=== PATIENT | male | born 1950 | race African-American/Black ===

== ENCOUNTER 2016-10-01 13:26 | Emergency (ER) | payer MEDICARE, OTHER ==
[~2016-10-01] VITALS: Ht 185.4 cm; Wt 81.6 kg
[~2016-10-01 13:26] MED LIST: ASPIR 8181 MG ORAL; TYLENOL650 MG/20. ORAL
[2016-10-01 13:30] VITALS: BP 160/58
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
== END 2016-10-01 13:50 | disposition left against medical advice (07) ==
LOC: EDBD 13:26 → EMR 13:38
DX: R07.89 Other chest pain (principal); I10 Essential (primary) hypertension; F41.9 Anxiety disorder, unspecified
CPT/HCPCS: 99283

== ENCOUNTER 2017-01-10 11:51 | Emergency (ER) | payer MEDICARE, MEDICAID ==
[~2017-01-10] VITALS: Ht 188 cm; Wt 79.4 kg
[2017-01-10] MEDS ORDERED: DiphenhydrAMINE 50mg/ml Inj IM ONE (12:00)
[2017-01-10] MEDS ORDERED: LORazepam Inj 2mg/ml 1ml IM ONE (12:00)
[2017-01-10] MEDS ORDERED: Haloperidol 5mg/ml Inj IM ONE (12:00)
--- NOTE | 2017-01-10 12:37 | Emergency Room Report ---
History of Present Illness General Chief Complaint: Behavioral Complaint Source: EMS (Farhat eSwell) Present Illness HPI Patient is a 66-year-old male sent in by police after increased agitation. Patient had been brought in by police and EMS. Patient was noted to have increased agitation and had been markedly combative. It is difficult to assess the patient's history due to patient's poor cooperation and agitation. (Farhat Sewell) Allergies: Coded Allergies: No Known Allergies (Unverified , 12/01/15) Patient History Reviewed Nursing Documentation: PMH: Agreed, PSxH: Agreed (Farhat Sewell) Nursing Documentation-PMH Past Medical History: No History, Except For Hx Cardiac Problems: Yes Hx Hypertension: No - HIV (Farhat Sewell) Review of Systems All Other Systems: limited - by ams (Farhat Sewell) Physical Exam Vital Signs Date Time Temp Pulse Resp B/P Pulse Ox O2 Delivery O2 Flow Rate FiO2 01/10/17 11:42 115 20 98 Room Air Sp02 EP Interpretation: reviewed, normal General Appearance: alert/responsive, no apparent distress, GCS 15, non-toxic Head: atraumatic Eyes: PERRL, lids + conjunctiva normal ENT: hearing intact, no angioedema Neck: supple/symm/no masses, no meningismus Respiratory: effort normal, no wheezing, chest symmetrical Cardiovascular: regular rate, rhythm, no edema Cardiovascular #2: 2+ carotid (R), 2+ carotid (L), 2+ dorsalis pedis (R), 2+ dorsalis pedis (L) Gastrointestinal: non-tender, no mass, non-distended, no rebound/guarding, normal bowel sounds Musculoskeletal: gait & station normal, strength & tone normal, normal ROM, non -tender Neurologic: CN II-XII intact, sensory intact Psychiatric: other - agitated combative Skin: no rash, well hydrated Lymphatic: normal inspection (Farhat Sewell) Medical Decision Making Diagnostic Impression: Primary Impression: Behavioral disorder Additional Impression: Cocaine abuse ER Course Patient presented for agitation. Differential diagnoses include substance abuse, psychosis, bipolar disorder, depression, malingering. Patient was noted to have marked agitation and was given multiple medications for sedation. Laboratory testing was ordered. The patient was noted to have some improvement agitation after medication. Patient had been placed on a 5150 by [employer]. Labs Test 01/10/17 14:35 01/10/17 19:14 White Blood Count 7.2 K/UL (4.8-10.8) Red Blood Count 3.94 M/UL (4.70-6.10) Hemoglobin 12.2 G/DL (14.2-18.0) Hematocrit 37.8 % (42.0-52.0) Mean Corpuscular Volume 96 FL (80-99) Mean Corpuscular Hemoglobin 31.0 PG (27.0-31.0) Mean Corpuscular Hemoglobin Concent 32.4 G/DL (32.0-36.0) Red Cell Distribution Width 17.0 % (11.6-14.8) Platelet Count 174 K/UL (150-450) Mean Platelet Volume 5.7 FL (6.5-10.1) Neutrophils (%) (Auto) 61.5 % (45.0-75.0) Lymphocytes (%) (Auto) 29.2 % (20.0-45.0) Monocytes (%) (Auto) 7.2 % (1.0-10.0) Eosinophils (%) (Auto) 0.6 % (0.0-3.0) Basophils (%) (Auto) 1.4 % (0.0-2.0) Sodium Level 141 mEQ/L (135-145) Potassium Level 3.8 mEQ/L (3.4-4.9) Chloride Level 101 mEQ/L (98-107) Carbon Dioxide Level 23 mEQ/L (20-30) Anion Gap 17 (5-15) Blood Urea Nitrogen 35 mg/dL (7-23) Creatinine 1.2 mg/dL (0.7-1.2) Estimat Glomerular Filtration Rate > 60 mL/min (>60) Glucose Level 105 mg/dL (74-106) Calcium Level 8.7 mg/dL (8.6-10.2) Total Bilirubin 0.6 mg/dL (0.0-1.2) Aspartate Amino Transf (AST/SGOT) 73 U/L (5-40) Alanine Aminotransferase (ALT/SGPT) 26 U/L (3-41) Alkaline Phosphatase 88 U/L (40-129) Total Protein 6.7 g/dL (6.6-8.7) Albumin 3.8 g/dL (3.5-5.2) Globulin 2.9 g/dL Albumin/Globulin Ratio 1.3 (1.0-2.7) Salicylates Level < 1 mg/dL (10-30) Acetaminophen Level < 10 ug/mL (10-30) Serum Alcohol < 10 mg/dL Urine Opiates Screen Negative (NEGATIVE) Urine Barbiturates Screen Negative (NEGATIVE) Phencyclidine (PCP) Screen Negative (NEGATIVE) Urine Amphetamines Screen Negative (NEGATIVE) Urine Benzodiazepines Screen Negative (NEGATIVE) Urine Cocaine Screen Positive (NEGATIVE) Urine Marijuana (THC) Screen Negative (NEGATIVE) (Farhat Sewell) ER Course Hospital Course 66-year-old male presents to ED for behavioral disturbance. running through traffic Clinical course Initially seen and evaluated by Dr. Sewell; please see his note for full history and physical patient was sedated initially for agitation Labs-electrolytes normal, aspirin/Tylenol levels normal, EtOH level normal, U. tox +cocaine Patient placed on 5150 hold by police Patient is medically cleared and pending psychiatric evaluation. i. I feel this is a highly complex case requiring extensive working including EKG/Rhythm strip, Xray/CT/US, Blood/urine lab work, repeat exams while in ED, and administration of strong opiates/narcotics for pain control, admission to hospital or close patient follow up. Labs Test 01/10/17 14:35 01/10/17 19:14 White Blood Count 7.2 K/UL (4.8-10.8) Red Blood Count 3.94 M/UL (4.70-6.10) Hemoglobin 12.2 G/DL (14.2-18.0) Hematocrit 37.8 % (42.0-52.0) Mean Corpuscular Volume 96 FL (80-99) Mean Corpuscular Hemoglobin 31.0 PG (27.0-31.0) Mean Corpuscular Hemoglobin Concent 32.4 G/DL (32.0-36.0) Red Cell Distribution Width 17.0 % (11.6-14.8) Platelet Count 174 K/UL (150-450) Mean Platelet Volume 5.7 FL (6.5-10.1) Neutrophils (%) (Auto) 61.5 % (45.0-75.0) Lymphocytes (%) (Auto) 29.2 % (20.0-45.0) Monocytes (%) (Auto) 7.2 % (1.0-10.0) Eosinophils (%) (Auto) 0.6 % (0.0-3.0) Basophils (%) (Auto) 1.4 % (0.0-2.0) Sodium Level 141 mEQ/L (135-145) Potassium Level 3.8 mEQ/L (3.4-4.9) Chloride Level 101 mEQ/L (98-107) Carbon Dioxide Level 23 mEQ/L (20-30) Anion Gap 17 (5-15) Blood Urea Nitrogen 35 mg/dL (7-23) Creatinine 1.2 mg/dL (0.7-1.2) Estimat Glomerular Filtration Rate > 60 mL/min (>60) Glucose Level 105 mg/dL (74-106) Calcium Level 8.7 mg/dL (8.6-10.2) Total Bilirubin 0.6 mg/dL (0.0-1.2) Aspartate Amino Transf (AST/SGOT) 73 U/L (5-40) Alanine Aminotransferase (ALT/SGPT) 26 U/L (3-41) Alkaline Phosphatase 88 U/L (40-129) Total Protein 6.7 g/dL (6.6-8.7) Albumin 3.8 g/dL (3.5-5.2) Globulin 2.9 g/dL Albumin/Globulin Ratio 1.3 (1.0-2.7) Salicylates Level < 1 mg/dL (10-30) Acetaminophen Level < 10 ug/mL (10-30) Serum Alcohol < 10 mg/dL Urine Opiates Screen Negative (NEGATIVE) Urine Barbiturates Screen Negative (NEGATIVE) Phencyclidine (PCP) Screen Negative (NEGATIVE) Urine Amphetamines Screen Negative (NEGATIVE) Urine Benzodiazepines Screen Negative (NEGATIVE) Urine Cocaine Screen Positive (NEGATIVE) Urine Marijuana (THC) Screen Negative (NEGATIVE) (MIGDALIA MCDONNELL M.D.) ER Course Patient signed out to me. Patient was placed on a 5150 by police. Initially he was combative and running in traffic. Now is calm and cooperative. He wanted to go to a psychiatric facility. Lab work are unremarkable. (MITCH KAISER M.D.) Last Vital Signs Date Time Temp Pulse Resp B/P Pulse Ox O2 Delivery O2 Flow Rate FiO2 01/10/17 11:42 115 20 98 Room Air Status: unchanged (Farhat Sewell) Status: improved (MIGDALIA MCDONNELL M.D.) Disposition: XFER TO PSYCH HOSP/UNIT Condition: Serious Farhat Sewell Jan 10, 2017 12:37 MIGDALIA MCDONNELL M.D. Jan 10, 2017 23:13 MITCH KAISER M.D. Jan 11, 2017 03:21
[2017-01-10 13:05] VITALS: BP 154/86
[2017-01-10 14:55] LABS: BASOPHILS % (AUTO) 1.4 % (0.0-2.0); EOSINOPHILS % (AUTO) 0.6 % (0.0-3.0); LYMPHOCYTES % (AUTO) 29.2 % (20.0-45.0); MEAN CORPUSCULAR HGB CONC 32.4 G/DL (32.0-36.0); MEAN CORPUSCULAR VOLUME 96 FL (80-99); MEAN PLATELET VOLUME 5.7 FL (6.5-10.1); MONOCYTES % (AUTO) 7.2 % (1.0-10.0); NEUTROPHILS % (AUTO) 61.5 % (45.0-75.0); PLATELET COUNT 174 K/UL (150-450); RED BLOOD COUNT 3.94 M/UL (4.70-6.10); WHITE BLOOD COUNT 7.2 K/UL (4.8-10.8)
[2017-01-10 15:15] LABS: ACETAMINOPHEN < 10 ug/mL (10-30); ALANINE AMINOTRANSFERASE 26 U/L (3-41); ALBUMIN/GLOBULIN RATIO 1.3 (1.0-2.7); ALCOHOL < 10 mg/dL; ANION GAP 17 (5-15); ASPARTATE AMINO TRANSFERASE 73 U/L (5-40); CALCIUM 8.7 mg/dL (8.6-10.2); CARBON DIOXIDE 23 mEQ/L (20-30); CHLORIDE 101 mEQ/L (98-107); CREATININE 1.2 mg/dL (0.7-1.2); GLOMERULAR FILTRATION RATE > 60 mL/min (>60); HEMOLYSIS 6; POTASSIUM 3.8 mEQ/L (3.4-4.9); SODIUM 141 mEQ/L (135-145); TOTAL PROTEIN 6.7 g/dL (6.6-8.7)
[2017-01-10 19:05] VITALS: BP 109/71
[2017-01-10 23:00] VITALS: BP 149/92
[2017-01-11 03:31] VITALS: BP 136/82
[2017-01-11 07:46] VITALS: BP 140/89
[2017-01-11 09:55] VITALS: BP 139/80
[2017-01-11 10:34] VITALS: BP 139/80
== END 2017-01-11 10:35 ==
LOC: EDBD 11:51 → EMR 13:14
DX: F91.9 Conduct disorder, unspecified (principal); F14.10 Cocaine abuse, uncomplicated
CPT/HCPCS: 36415; 80053; 80300; 85025; 96372; 99285; G0480; J1200; J1630; 80329

== ENCOUNTER 2017-07-20 05:40 | Emergency (ER) | payer MEDICARE, MEDICAID ==
[~2017-07-20] VITALS: Ht 188 cm; Wt 74.8 kg
[2017-07-20 06:06] VITALS: BP 123/68
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
[2017-07-20] MEDS ORDERED: ACETAMINOPHEN-1 EAC1 ORAL (07:54)
[2017-07-20 08:15] VITALS: BP 125/81
--- NOTE | 2017-07-20 08:43 | Diagnostic Imaging Report ---
Indications: PAIN, trauma Technique: Spiral images obtained through the facial bones. No IV contrast utilized. Multiplanar reconstructions were generated.Total dose length product 654 mGycm. CTDIvol(s) 20mGy. Dose reduction achieved using automated exposure control Comparison: None Findings: There is some image degradation due to motion artifact. Questionable minimally displaced right-sided nasal fracture deformity demonstrated. There is some layering of fluid within the right axillary sinus, but no definite maxillary sinus wall fracture demonstrated. No definite orbital fracture. Is evidence of multiple prior dental extractions. The existing dentition appears intact. There is minimal ethmoid sinus disease area the included intracranial structures are unremarkable. The optic globes are intact. Impression: Somewhat limited exam, due to motion artifact Age-indeterminate right-sided nasal fracture deformity No other evidence of acute fracture Sinus disease This agrees with the preliminary interpretation provided overnight by [facility] teleradiology service. The CT scanner at [facility] is accredited by the [employer] and the scans are performed using protocols designed to limit radiation exposure to as low as reasonably achievable to attain images of sufficient resolution adequate for diagnostic evaluation.
--- NOTE | 2017-07-20 08:46 | Diagnostic Imaging Report ---
Indications: Trauma, pain Technique: Spiral acquisitions obtained through the brain. Angled axial and coronal 5 x 5 mm slices were reconstructed. Total dose length product 1550 mGycm. CTDI vol(s) 70 mGy. Dose reduction achieved using automated exposure control Comparison: None Findings: There is some image degradation due to motion artifact. There is mild age-related enlargement of ventricles and extra-axial CSF spaces, minimal periventricular the white matter chronic ischemic change. No definite acute hemorrhage or edema, mass effect, or midline shift. Questionable age indeterminate right-sided nasal fracture deformity. Minimal right maxillary sinus air-fluid level and ethmoid sinus mucosal disease. Intact orbits. Impression: Somewhat limited exam due to motion artifact No gross acute intracranial bleed or mass effect. Age indeterminate nasal fracture deformity Sinus disease This agrees with the preliminary interpretation provided overnight by [facility] telerad[facility] service. The CT scanner at [facility] is accredited by the [employer] and the scans are performed using protocols designed to limit radiation exposure to as low as reasonably achievable to attain images of sufficient resolution adequate for diagnostic evaluation.
== END 2017-07-20 08:15 | disposition home or self-care (01) ==
LOC: EMR 06:09
DX: S01.412A Laceration without foreign body of left cheek and temporomandibular area, initial encounter (principal); Y04.2XXA Assault by strike against or bumped into by another person, initial encounter; Y92.89 Other specified places as the place of occurrence of the external cause; R51 Headache
CPT/HCPCS: 70450; 70486; 99284

== ENCOUNTER 2017-11-09 18:56 | Inpatient (IN) | payer MEDICARE, MEDICAID ==
[~2017-11-09] VITALS: Ht 182.9 cm; Wt 74.8 kg
[~2017-11-09 18:56] MED LIST changes: +ACETAMINOPHEN-1 EAC1 ORAL
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
[2017-11-09 19:55] LABS: BASOPHILS % (AUTO) 1.7 % (0.0-2.0); HEMATOCRIT 34.6 % (42.0-52.0); HEMOGLOBIN 11.3 G/DL (14.2-18.0); LYMPHOCYTES % (AUTO) 39.1 % (20.0-45.0); MEAN CORPUSCULAR VOLUME 94 FL (80-99); MONOCYTES % (AUTO) 9.7 % (1.0-10.0); NEUTROPHILS % (AUTO) 46.5 % (45.0-75.0); PLATELET COUNT 248 K/UL (150-450); RED BLOOD COUNT 3.66 M/UL (4.70-6.10); WHITE BLOOD COUNT 4.5 K/UL (4.8-10.8)
[2017-11-09 20:00] VITALS: BP 121/89
[2017-11-09 20:07] LABS: ANION GAP 3 mmol/L (5-15); BLOOD UREA NITROGEN 18 mg/dL (7-18); CALCIUM 8.7 MG/DL (8.5-10.1); CARBON DIOXIDE 30 MMOL/L (21-32); CHLORIDE 105 MMOL/L (98-107); CREATININE 1.1 MG/DL (0.55-1.30); POTASSIUM 3.7 MMOL/L (3.5-5.1); SODIUM 138 MMOL/L (136-145)
[2017-11-09 20:19] LABS: ALANINE AMINOTRANSFERASE 17 U/L (12-78); ALBUMIN 2.8 G/DL (3.4-5.0); ALBUMIN/GLOBULIN RATIO 0.8 (1.0-2.7); ALKALINE PHOSPHATASE 95 U/L (46-116); ASPARTATE AMINO TRANSFERASE 28 U/L (15-37); BILIRUBIN,TOTAL 0.2 MG/DL (0.2-1.0)
[2017-11-09 21:48] VITALS: BP 131/71
[2017-11-10 04:00] VITALS: BP 126/74
[2017-11-10 08:00] VITALS: BP 123/76
[2017-11-10] MEDS ORDERED: Epzicom tab ORAL SCH (09:00)
[2017-11-10] MEDS ORDERED: Zidovudine 100mg cap ORAL SCH (09:00)
--- NOTE | 2017-11-10 09:34 | Cardiac Electrophysiology PN ---
Subjective Subjective Cardiology consult dictated [id number] Objective Last 24 Hour Vital Signs Date Time Temp Pulse Resp B/P (MAP) Pulse Ox O2 Delivery O2 Flow Rate FiO2 11/10/17 04:00 97.8 80 20 126/74 98 Room Air 11/10/17 00:00 82 11/09/17 23:17 98.8 78 18 131/71 99 Room Air 98.8 11/09/17 21:48 98.8 78 18 131/71 99 Room Air 98.8 11/09/17 20:00 98.8 89 18 121/89 99 Room Air 98.8 11/09/17 19:13 100 18 Room Air 11/09/17 18:52 98.7 100 18 143/87 99 Room Air 98.8 Intake and Output 11/09/17 11/10/17 19:00 07:00 Intake Total 0 ml Balance 0 ml Intake Oral 0 ml Laboratory Tests Test 11/09/17 19:26 White Blood Count 4.5 K/UL (4.8-10.8) L Red Blood Count 3.66 M/UL (4.70-6.10) L Hemoglobin 11.3 G/DL (14.2-18.0) L Hematocrit 34.6 % (42.0-52.0) L Mean Corpuscular Volume 94 FL (80-99) Mean Corpuscular Hemoglobin 30.8 PG (27.0-31.0) Mean Corpuscular Hemoglobin Concent 32.6 G/DL (32.0-36.0) Red Cell Distribution Width 16.0 % (11.6-14.8) H Platelet Count 248 K/UL (150-450) Mean Platelet Volume 5.5 FL (6.5-10.1) L Neutrophils (%) (Auto) 46.5 % (45.0-75.0) Lymphocytes (%) (Auto) 39.1 % (20.0-45.0) Monocytes (%) (Auto) 9.7 % (1.0-10.0) Eosinophils (%) (Auto) 3.0 % (0.0-3.0) Basophils (%) (Auto) 1.7 % (0.0-2.0) Sodium Level 138 MMOL/L (136-145) Potassium Level 3.7 MMOL/L (3.5-5.1) Chloride Level 105 MMOL/L (98-107) Carbon Dioxide Level 30 MMOL/L (21-32) Anion Gap 3 mmol/L (5-15) L Blood Urea Nitrogen 18 mg/dL (7-18) Creatinine 1.1 MG/DL (0.55-1.30) Estimat Glomerular Filtration Rate > 60 mL/min (>60) Glucose Level 74 MG/DL (74-106) Calcium Level 8.7 MG/DL (8.5-10.1) Total Bilirubin 0.2 MG/DL (0.2-1.0) Aspartate Amino Transf (AST/SGOT) 28 U/L (15-37) Alanine Aminotransferase (ALT/SGPT) 17 U/L (12-78) Alkaline Phosphatase 95 U/L (46-116) Troponin I 0.010 ng/mL (0.000-0.056) Pro-B-Type Natriuretic Peptide 2377 pg/mL (0-125) H Total Protein 6.4 G/DL (6.4-8.2) Albumin 2.8 G/DL (3.4-5.0) L Globulin 3.6 g/dL Albumin/Globulin Ratio 0.8 (1.0-2.7) L JUDE HSU Nov 10, 2017 09:34
[2017-11-10] MEDS ORDERED: Pneumococcal Vaccine 25mcg/0.5ml IM ONE (10:00)
[2017-11-10] MEDS: Flu Vaccine Quadrivalent 0.5ml IM ONE ×2 (10:00→10:46)
[2017-11-10] MEDS: Aspirin Baby 81mg ORAL SCH (10:41)
[2017-11-10 11:52] LABS: BASOPHILS % (AUTO) 0.9 % (0.0-2.0); EOSINOPHILS % (AUTO) 1.8 % (0.0-3.0); HEMATOCRIT 37.6 % (42.0-52.0); HEMOGLOBIN 12.3 G/DL (14.2-18.0); LYMPHOCYTES % (AUTO) 41.9 % (20.0-45.0); MEAN CORPUSCULAR VOLUME 95 FL (80-99); MONOCYTES % (AUTO) 6.3 % (1.0-10.0); NEUTROPHILS % (AUTO) 49.1 % (45.0-75.0); PLATELET COUNT 268 K/UL (150-450); RED BLOOD COUNT 3.95 M/UL (4.70-6.10); RED CELL DISTRIBUTION WIDTH 15.9 % (11.6-14.8); WHITE BLOOD COUNT 6.2 K/UL (4.8-10.8)
[2017-11-10 12:00] VITALS: BP 140/87
[2017-11-10 12:25] LABS: ANION GAP 2 mmol/L (5-15); BLOOD UREA NITROGEN 16 mg/dL (7-18); CALCIUM 8.9 MG/DL (8.5-10.1); CARBON DIOXIDE 33 MMOL/L (21-32); CHLORIDE 105 MMOL/L (98-107); CHOLESTEROL 129 MG/DL (< 200); CREATININE 1.1 MG/DL (0.55-1.30); HDL CHOLESTEROL 56 MG/DL (40-60); POTASSIUM 3.9 MMOL/L (3.5-5.1); SODIUM 140 MMOL/L (136-145); TRIGLYCERIDES 55 MG/DL (30-150)
--- NOTE | 2017-11-10 14:13 | Cardiology Report ---
APPROVED REPORT EKG Measurement Heart [id number] Normal sinus rhythm LBBB Abnormal ECG
[2017-11-10] MEDS ORDERED: oxyCODONE 5mg IR tab ORAL PRN (14:45)
[2017-11-10] MEDS ORDERED: guaiFENesin DM 100mg/5ml ORAL PRN (14:45)
[2017-11-10] MEDS ORDERED: oxyCODONE 15mg IR tab ORAL PRN (14:45)
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
[2017-11-10 16:00] VITALS: BP 144/82
[2017-11-10] MEDS: Dolutegravir Sodium 50mg tab ORAL SCH (16:00)
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
[2017-11-10] MEDS: ALPRAZolam 0.25mg tab ORAL SCH (19:04)
[2017-11-10 20:00] VITALS: BP 153/77
[2017-11-10] MEDS: Heparin 5000 units/ml inj SUBQ SCH (21:00)
[2017-11-10] MEDS ORDERED: Atorvastatin 80mg tab ORAL SCH (21:00)
[2017-11-11] VITALS: BP 137/75
[2017-11-11 04:00] VITALS: BP 115/69
[2017-11-11 08:05] VITALS: BP 119/76
[2017-11-11 08:26] LABS: BASOPHILS % (AUTO) 0.9 % (0.0-2.0); EOSINOPHILS % (AUTO) 1.2 % (0.0-3.0); HEMATOCRIT 36.2 % (42.0-52.0); HEMOGLOBIN 11.6 G/DL (14.2-18.0); LYMPHOCYTES % (AUTO) 29.7 % (20.0-45.0); MEAN CORPUSCULAR VOLUME 95 FL (80-99); MONOCYTES % (AUTO) 7.1 % (1.0-10.0); NEUTROPHILS % (AUTO) 61.1 % (45.0-75.0); PLATELET COUNT 245 K/UL (150-450); RED BLOOD COUNT 3.81 M/UL (4.70-6.10); RED CELL DISTRIBUTION WIDTH 16.2 % (11.6-14.8); WHITE BLOOD COUNT 6.3 K/UL (4.8-10.8)
--- NOTE | 2017-11-11 08:39 | Cardiac Electrophysiology PN ---
Assessment/Plan Assessment/Plan 1. CP. Ruled out for [place]. Nuclear stress test pending.Echo EF 40-45% 2. HTN and cardiomyopathy EF 45%. Start Coreg 3.125 bid 3. HIV. on HAART 4. Hyperlipidemia on Lipitor DW RN Subjective Subjective NPO for stress test today. No chest pain or SOB. Objective Last 24 Hour Vital Signs Date Time Temp Pulse Resp B/P (MAP) Pulse Ox O2 Delivery O2 Flow Rate FiO2 11/11/17 08:05 99.0 91 19 119/76 99 Room Air 11/11/17 04:00 96.4 88 18 115/69 96 Room Air 11/11/17 04:00 87 11/11/17 00:00 96.8 79 19 137/75 100 Room Air 11/11/17 00:00 86 11/10/17 20:00 94 11/10/17 20:00 98.1 84 19 153/77 97 Room Air 11/10/17 16:00 96 11/10/17 16:00 97.2 90 20 144/82 97 Room Air 11/10/17 12:00 85 11/10/17 12:00 96.5 75 20 140/87 97 Room Air Intake and Output 11/10/17 11/11/17 19:00 07:00 Intake Total 700 ml Output Total 200 ml Balance 700 ml -200 ml Intake Oral 700 ml Output Urine Total 200 ml # Voids 3 # Bowel Movements 3 Laboratory Tests Test 11/10/17 11:15 11/10/17 17:40 11/11/17 07:44 White Blood Count 6.2 K/UL (4.8-10.8) Pending Red Blood Count 3.95 M/UL (4.70-6.10) L 3.81 M/UL (4.70-6.10) L Hemoglobin 12.3 G/DL (14.2-18.0) L 11.6 G/DL (14.2-18.0) L Hematocrit 37.6 % (42.0-52.0) L 36.2 % (42.0-52.0) L Mean Corpuscular Volume 95 FL (80-99) 95 FL (80-99) Mean Corpuscular Hemoglobin 31.1 PG (27.0-31.0) H 30.3 PG (27.0-31.0) Mean Corpuscular Hemoglobin Concent 32.7 G/DL (32.0-36.0) 31.9 G/DL (32.0-36.0) L Red Cell Distribution Width 15.9 % (11.6-14.8) H 16.2 % (11.6-14.8) H Platelet Count 268 K/UL (150-450) 245 K/UL (150-450) Mean Platelet Volume 5.8 FL (6.5-10.1) L 5.5 FL (6.5-10.1) L Neutrophils (%) (Auto) 49.1 % (45.0-75.0) 61.1 % (45.0-75.0) Lymphocytes (%) (Auto) 41.9 % (20.0-45.0) 29.7 % (20.0-45.0) Monocytes (%) (Auto) 6.3 % (1.0-10.0) 7.1 % (1.0-10.0) Eosinophils (%) (Auto) 1.8 % (0.0-3.0) 1.2 % (0.0-3.0) Basophils (%) (Auto) 0.9 % (0.0-2.0) 0.9 % (0.0-2.0) Sodium Level 140 MMOL/L (136-145) Pending Potassium Level 3.9 MMOL/L (3.5-5.1) Pending Chloride Level 105 MMOL/L (98-107) Pending Carbon Dioxide Level 33 MMOL/L (21-32) H Pending Anion Gap 2 mmol/L (5-15) L Blood Urea Nitrogen 16 mg/dL (7-18) Pending Creatinine 1.1 MG/DL (0.55-1.30) Pending Estimat Glomerular Filtration Rate > 60 mL/min (>60) Pending Glucose Level 76 MG/DL (74-106) Pending Hemoglobin A1c 5.8 % (4.3-6.0) Calcium Level 8.9 MG/DL (8.5-10.1) Pending Troponin I 0.000 ng/mL (0.000-0.056) 0.002 ng/mL (0.000-0.056) Pro-B-Type Natriuretic Peptide 1568 pg/mL (0-125) H Pending Triglycerides Level 55 MG/DL (30-150) Cholesterol Level 129 MG/DL (< 200) LDL Cholesterol 73 mg/dL (<100) HDL Cholesterol 56 MG/DL (40-60) Cholesterol/HDL Ratio 2.3 (3.3-4.4) L Thyroid Stimulating Hormone (TSH) 0.269 uiU/mL (0.358-3.740) Free Thyroxine 0.90 NG/DL (0.76-1.46) Lymphocytes Pending Prothrombin Time Pending Prothromb Time International Ratio Pending Percent CD3 Cells Pending Absolute CD3 Count Pending Percent CD4 Cells Pending Absolute CD4 Count Pending T-Lymphocyte CD4/CD8 Ratio Pending Percent CD8 Cells Pending Absolute CD8 Count Pending HIV-1 RNA (PCR) log10 Value Pending HIV-1 RNA Ultraquantitative (PCR) Pending Objective General: alert, cooperative, no distress, appears stated age Head: normocephalic, without obvious abnormality, atraumatic Eyes: conjunctivae/corneas clear. PERRL, EOM's intact Throat: lips, mucosa, and tongue normal. MMM Neck: supple, symmetrical, trachea midline, and no JVD Lungs: clear to auscultation bilaterally Heart: regular rate and rhythm, S1, S2 normal, no murmur, click, rub or gallop Abdomen: soft, non-tender, non-distended, bowel sounds normal; no masses or organomegaly Extremities: extremities normal, atraumatic, no cyanosis or edema Pulses: 2+ and symmetric Skin: skin color, texture, turgor normal; no rashes or lesions Neurologic: grossly normal, no focal deficits JUDE HSU Nov 11, 2017 08:39
[2017-11-11 08:45] LABS: ANION GAP 3 mmol/L (5-15); BLOOD UREA NITROGEN 19 mg/dL (7-18); CALCIUM 8.1 MG/DL (8.5-10.1); CARBON DIOXIDE 29 MMOL/L (21-32); CHLORIDE 106 MMOL/L (98-107); CREATININE 1.1 MG/DL (0.55-1.30); POTASSIUM 3.8 MMOL/L (3.5-5.1); SODIUM 138 MMOL/L (136-145)
[2017-11-11] MEDS: Heparin 5000 units/ml inj SUBQ SCH (09:00)
[2017-11-11] MEDS ORDERED: Lexiscan 0.4mg/5ml syringe IV PRN (09:00)
[2017-11-11] MEDS: ALPRAZolam 0.25mg tab ORAL SCH ×2 (09:00→09:11)
[2017-11-11] MEDS: Aspirin Baby 81mg ORAL SCH (09:10)
[2017-11-11] MEDS: Dolutegravir Sodium 50mg tab ORAL SCH (09:11)
[2017-11-11 12:04] VITALS: BP 114/73
[2017-11-11] MEDS ORDERED: TRUVADA1 TAB ORAL (13:11)
[2017-11-11] MEDS ORDERED: TIVICAY50 MG ORAL (13:11)
[2017-11-11] MEDS ORDERED: ATORVASTATIN CA20 MG ORAL (14:49)
[2017-11-11] MEDS ORDERED: ASPIRIN81 MG ORAL (14:49)
[2017-11-11] MEDS ORDERED: COREG3.125 MG ORAL (14:49)
[2017-11-11 16:00] VITALS: BP 124/68
--- NOTE | 2017-11-11 16:04 | Diagnostic Imaging Report ---
Indications: Chest pain Technique: Single day single isotope protocol utilized. Initially, resting images obtained using IV administration 9.9 millicuries 99M technetium Myoview. Subsequently, patient underwent lexiscan stress testing. See cardiology report for details. During Lexiscan infusion, IV administration 32.1 mCi 99 M technetium Myoview. SPECT and planar images obtained. SPECT images gated to 8 phases of the cardiac cycle were also obtained, and reformatted into cine images for evaluation of ejection fraction. Comparison: none Findings: Per cardiology report, patient experienced no symptoms. Per cardiology report, resting EKG demonstrates normal sinus rhythm with left bundle branch block. Presence or absence of ST changes not described on the cardiology report. Imaging demonstrates small area of decreased perfusion in the septum extending into the anterior and inferior cerna. This is fixed on the resting images. No reversible perfusion defects are demonstrated.. Calculated post stress ejection fraction 40%. There is decreased apical wall motion as well as generalized mild hypokinesis Impression: Nonischemic clinical response to pharmacologic stress, per cardiology report Nondiagnostic electrocardiographic response to pharmacologic stress, per cardiology report Positive for apical infarct. No imaging findings to suggest ischemia, at level of stress achieved. Calculated post stress ejection fraction 40%
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
--- NOTE | 2017-12-05 09:29 | Cardiology Report ---
APPROVED REPORT EXAM: Two-dimensional and M-mode echocardiogram with Doppler and color Doppler. INDICATION Chest Pain M-Mode DIMENSIONS IVSd1.6 (0.7-1.1cm)Left Atrium (MM)3.7 (1.6-4.0cm) LVDd5.2 (3.5-5.6cm)Aortic Root3.6 (2.0-3.7cm) PWd1.2 (0.7-1.1cm)Aortic Cusp Exc.2.0 (1.5-2.0cm) LVDs4.5 (2.5-4.0cm) PWs1.3 cm Normal left ventricular chamber size. Global left ventricular hypokinesis. Inferior wall, mid septal, and anterior septal akinesis. Left ventricular ejection fraction estimated to be 40%. No evidence of left ventricular hypertrophy. No evidence of pericardial or pleural effusion. Right cardiac chamber sizes are within normal limits. Mild left atrial enlargement by 2D. Focal aortic valve sclerosis with adequate cusp excursion. Thickened mitral valve leaflets with normal excursion. Mild mitral annulus and aortic root calcification. Pulmonic valve not well visualized. Normal tricuspid valve structure. IVC is normal in size and collapsible with respiration. A color flow and spectral Doppler study was performed and revealed: No aortic regurgitation. No mitral regurgitation. Mitral diastolic velocities suggest reduced left ventricular relaxation c/w diastolic dysfunction grade 1. No tricuspid regurgitation. Pulmonic regurgitation present.
== END 2017-11-11 16:30 | disposition left against medical advice (07) | DRG 314 ==
LOC: EDBD 18:56 → EMR 19:33 → EDUNIT# 21:55 → 2E 21:55 → EDBD 21:55 → EDBEDREQ 22:35 → 2E 11-10 03:01
DX: I42.8 Other cardiomyopathies (principal); B20 Human immunodeficiency virus [HIV] disease; F14.188 Cocaine abuse with other cocaine-induced disorder; R07.89 Other chest pain; I10 Essential (primary) hypertension; F14.10 Cocaine abuse, uncomplicated; F32.9 Major depressive disorder, single episode, unspecified; F41.9 Anxiety disorder, unspecified; E78.5 Hyperlipidemia, unspecified; Z23 Encounter for immunization
CPT/HCPCS: 36415; 71045; 78452; 80048; 80053; 80061; 80307; 83036; 83880; 84439; 84443; 84484; 85025; 85610; 86360; 87536; 90630; 90732; 93005; 93017; 93306; J2785